=== PATIENT | male | born 1955 | race African-American/Black ===

== ENCOUNTER → 2020-03-14 | Outpatient (CLI) | payer OTHER, BC ==
[~2020-03-14] MED LIST: ANALGESIC325 MG PO; BACTRIM DS TAB1 EACH PO; DIABETA 5MG TABL5 MG GT; GABAPENTIN300 MG PO; LISINOPRIL10 MG PO; METOPROLOL 50 M50 M1 PO; NORTRIPTYLINE H25 M3 GT; SIMVASTATIN40 MG PO
== END ==
LOC: SJCVCIMAG 10:31
PROVIDERS: ATTEND Podiatrist Foot & Ankle Surgery
DX: I70.203 Unspecified atherosclerosis of native arteries of extremities, bilateral legs (principal)

== ENCOUNTER → 2020-05-09 | Outpatient (CLI) | payer OTHER, BC ==
[~2020-05-09] VITALS: Ht 188 cm; Wt 99.8 kg
[~2020-05-09] MED LIST changes: +ACETAMINOPHEN650 M5 PO; +ALLERGY 4-HOUR4 MG PO; +AMLODIPINE BESY10 MG PO; +ASA81BEC PO; +CYMBALTA60 MG; +DICYCLOMINE HCL20 MG PO; +FAMOTIDINE40 MG PO; +FLOMAX0.4 MG PO; +GLUMETZA1000 PO; +HYDROXYZINE HCL25 M2 PO; +IMDUR 60 MG TAB60 M1 PO; +JARDIANCE25 MG PO; +LINZESS145 MCG PO; +LIPITOR40 MG PO; +LISINOPRIL-HCT1 EACH PO; +NASONEX17 GM NASAL; +NITROSTAT0.4 M1 SUBLING; +NOVOLOG100 UNIT/M SUBQ; +PROAIR HFA8.5 GM INH; +RANEXA500 MG PO; +TRAMADOL 50 MG50 MG PO; +TRESIBA FL200 UNIT/1 SUBQ; +TRULICITY0.75 MG/0. SUBQ; +ZOFRAN4 MG PO
[2020-05-09 07:25] VITALS: BP 146/60
[2020-05-09 07:48] LABS: HEMATOCRIT 39.9 % (42.0-52.0); HEMOGLOBIN 13.2 gm/dL (14.0-18.0); MCH 27.8 pg (26.0-34.0); MCHC 32.9 g/dL (28.0-37.0); MCV 84.4 fL (80.0-100.0); RBC 4.73 mil/uL (4.50-6.00); RDW 13.8 % (10.5-14.5); WBC 6.3 thou/uL (4.0-11.0)
[2020-05-09 07:57] LABS: CALCIUM 9.1 mg/dL (8.5-10.1); CREATININE 2.1 mg/dL (0.7-1.3); POTASSIUM 4.1 mmol/L (3.5-5.1)
== END | disposition home or self-care (01) ==
LOC: CATH 06:48
PROVIDERS: ATTEND Nuclear Medicine Nuclear Cardiology
DX: I70.211 Atherosclerosis of native arteries of extremities with intermittent claudication, right leg (principal); I70.1 Atherosclerosis of renal artery; I10 Essential (primary) hypertension; I25.10 Atherosclerotic heart disease of native coronary artery without angina pectoris; E11.9 Type 2 diabetes mellitus without complications; I25.2 Old myocardial infarction; E78.00 Pure hypercholesterolemia, unspecified; Z98.890 Other specified postprocedural states; Z79.899 Other long term (current) drug therapy; Z82.49 Family history of ischemic heart disease and other diseases of the circulatory system; Z88.8 Allergy status to other drugs, medicaments and biological substances

== ENCOUNTER → 2020-06-01 | Outpatient (CLI) | payer OTHER, BC | LOC: SJCVCIMAG 14:30 | PROVIDERS: ATTEND Nuclear Medicine Nuclear Cardiology | DX: I70.203 Unspecified atherosclerosis of native arteries of extremities, bilateral legs (principal); Z87.891 Personal history of nicotine dependence ==

== ENCOUNTER → 2021-01-15 | Outpatient (CLI) | payer OTHER, BC | LOC: SJCVCIMAG 07:31 | PROVIDERS: ATTEND Nuclear Medicine Nuclear Cardiology | DX: I70.203 Unspecified atherosclerosis of native arteries of extremities, bilateral legs (principal); I65.23 Occlusion and stenosis of bilateral carotid arteries; Z95.820 Peripheral vascular angioplasty status with implants and grafts; Z87.891 Personal history of nicotine dependence ==

== ENCOUNTER → 2021-04-30 | Outpatient (CLI) | payer OTHER, BC | LOC: SJCVCIMAG 09:56 | PROVIDERS: ATTEND Nuclear Medicine Nuclear Cardiology | DX: M79.605 Pain in left leg (principal); M79.89 Other specified soft tissue disorders ==

== ENCOUNTER → 2021-08-13 | Outpatient (CLI) | payer OTHER, BC | LOC: SJCVCIMAG 07:37 | PROVIDERS: ATTEND Nuclear Medicine Nuclear Cardiology | DX: I70.203 Unspecified atherosclerosis of native arteries of extremities, bilateral legs (principal); M79.606 Pain in leg, unspecified ==